=== PATIENT | male | born 1970 | race Two or more races ===

== ENCOUNTER 2020-05-13 01:35 | Emergency (ER) | payer OTHER ==
[~2020-05-13] VITALS: Ht 165.1 cm; Wt 103.4 kg
[2020-05-13 01:54] VITALS: BP 148/92
[2020-05-13] MEDS ORDERED: KETOROLAC TROMETH 60MG/2ML VIAL IM ONE (05:30)
== END 2020-05-13 05:46 | disposition home or self-care (01) ==
LOC: ER 01:35
DX: S22.31XA Fracture of one rib, right side, initial encounter for closed fracture (principal); S29.012A Strain of muscle and tendon of back wall of thorax, initial encounter; M62.838 Other muscle spasm; I10 Essential (primary) hypertension; E78.00 Pure hypercholesterolemia, unspecified; F17.210 Nicotine dependence, cigarettes, uncomplicated; X58.XXXA Exposure to other specified factors, initial encounter; Y93.89 Activity, other specified; Y92.89 Other specified places as the place of occurrence of the external cause; Y99.8 Other external cause status
CPT/HCPCS: 71045; 71111; 96372; 99284; J1885